=== PATIENT | male | born 1945 | race Caucasian/White ===

== ENCOUNTER → 2016-12-18 | Outpatient (CLI) | payer OTHER | LOC: GIMAGING 11:20 | PROVIDERS: ATTEND Family Medicine | DX: S62.232A Other displaced fracture of base of first metacarpal bone, left hand, initial encounter for closed fracture (principal); M19.042 Primary osteoarthritis, left hand | CPT/HCPCS: 73130-PO ==

== ENCOUNTER → 2016-12-28 | Outpatient (CLI) | payer OTHER | LOC: FIMAGING 13:20 | PROVIDERS: ATTEND Orthopaedic Surgery Hand Surgery | DX: S62.232D Other displaced fracture of base of first metacarpal bone, left hand, subsequent encounter for fracture with routine healing (principal); M19.042 Primary osteoarthritis, left hand ==

== ENCOUNTER 2017-07-17 19:53 | Emergency (ER) | payer OTHER ==
[2017-07-17 20:06] VITALS: RESP 16; TEMP 98.4
--- NOTE | 2017-07-17 20:20 | EDPHY ---
H & P Stated Complaint: ant chest pain intermittent over last month worse with exertion HPI/ROS: CHIEF COMPLAINT: Intermittent chest tightness HISTORY OF PRESENT ILLNESS: The patient is a 72 y/o male with a history of hypercholesterolemia and hypertension complaining of intermittent exertional chest tightness onset one month ago. A month ago, while playing hockey he noticed a mild tightness in his chest. The tightness dissipated with rest. He had a subsequent episode while on the rowing machine at the gym which again resolved with rest. Today he noticed the same tightness in his chest at the gym but it did not dissipate as usual and continues to be present. He rates the discomfort as a 1/10. He has a heart murmur but no known history of CAD. He had a negative stress test 5 years ago. He has not had a CT, angio, or MRI of the chest. He denies smoking, illicit drugs use, alcohol use, acid reflux, recent coughs, fever, or colds. He took 1 aspirin this afternoon. He recently completed radiation therapy for rising PSA in the setting of prostate cancer diagnosis and prostatectomy eight years ago. REVIEW OF SYSTEMS: A ten point review of systems was performed and is negative with the exception of the items mentioned in the HPI. Past medical history: 1. Hypercholesterolemia 2. Hypertension 3. 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 Vital signs reviewed. Blood pressure 159/65. Eyes: Pupils equal and round, no conjunctival injection, no discharge. Anicteric. ENT, Mouth: Mucous membranes are moist, no oropharyngeal erythema or edema. Neck: No lymphadenopathy, supple. No JVD. Respiratory: Lungs are clear to auscultation; no wheezes, rales, or rhonchi. Cardiovascular: Slightly bradycardic regular rate and rhythm, 3/6 murmur. No rub or gallop. Gastrointestinal: Abdomen is soft and nontender, no masses or organomegaly, bowel sounds normal. Skin: Warm and dry, no rashes on exposed skin, normal color. Back: Nontender to palpation over the thoracolumbar spine. No CVAT. Extremities: No lower extremity edema, no calf tenderness or swelling. Excoriation and small scabs to both ankles. Neurological: Alert and oriented. Moving all four extremities easily and equally. Psychiatric: Normal affect. - Personal History Current Tetanus/Diphtheria Vaccine: Unsure - Medical/Surgical History Hx Asthma: No Hx Chronic Respiratory Disease: No Hx Diabetes: No Hx Cardiac Disease: No Hx Renal Disease: No Hx Cirrhosis: No Hx Alcoholism: No Hx HIV/AIDS: No Hx Splenectomy or Spleen Trauma: No Other PMH: PMHx: high cholesterol. PSHx: bilat shoulders, prostate - Social History Smoking Status: Never smoked Constitutional: Initial Vital Signs Temperature (C) 36.9 C 07/17/17 20:02 Heart Rate 57 L 07/17/17 20:02 Respiratory Rate 16 07/17/17 20:02 Blood Pressure 159/65 H 07/17/17 20:02 O2 Sat (%) 94 07/17/17 20:02 O2 Delivery Mode Room Air Allergies/Adverse Reactions: No Known Allergies Allergy (Unverified 07/17/17 20:01) Medical Decision Making - Diagnostics EKG Interpretation: EKG interpreted by ED physician in [facility]. Imaging: I viewed and interpreted images myself ED Course/Re-evaluation: The patient is a 72 y/o male with a history of hypercholesterolemia, hypertension, and known heart murmur complaining of intermittent chest tightness onset one month ago. Until today the tightness was only on exertion. Today the tightness continued after leaving the gym. Chest X-ray, labs and EKG ordered. 224: I reviewed CXR. NAPD. No infiltrate, pneumothorax, mass. I do not suspect infection. The 12 lead EKG was interpreted by myself. See hard copy and/or "[facility]" electronic copy for interpretation. Sinus bradycardia at 56. Nonspecific T wave flattening anteriorly. Patient states that his chest discomfort is quite minor. CBC, chemistries, troponin all normal except for slight increase in blood sugar at 114. He has risk factors for CAD. His pain has been exertional, but today persisted after exercising. The description is suspicious for unstable angina. I am recommending hospitalization. However, he refuses hospitalization. We discussed my recommendation and he understand the risks of leaving, including PR and . He understands the benefits of remaining in the hospital. He is capable of making his own medical decisions. He has signed an AMA form. I strongly urged him to contact his PCP and schedule FU CRISTHIAN. He knows that he is welcome to return to the ED at anytime. His blood pressure was elevated in the ED, he is aware of this and agrees to have it checked by PCP. - Data Points Laboratory Results: Laboratory Results 07/17/17 20:30 07/17/17 20:30 Departure - Departure Disposition: Against Medical Advice Clinical Impression: Chest pain Qualifiers: Chest pain type: precordial pain Qualified Code(s): R07.2 - Precordial pain Condition: Fair Instructions: Angina (ED), Chest Pain (ED), Against Medical Advice (ED) Additional Instructions: 1. I recommend further evaluation with a supervisor pyrotechnic loading as soon as possible. You have been referred to Dr. Shepherd locally. 2. Return to the ED for any worsening of condition or if you wish to have further cardiac evaluation done here. By leaving against medical advise you have verbalized complete understanding and acceptance of the risks associated with doing so, including, but not limited to, , chronic & permanent disability and impairment, and other circumstances and consequences too numerous to mention here. Referrals: Kris Jackman MD [Primary Care Provider] - As per Instructions Nate Shepherd MD [Medical Doctor] - As per Instructions Report Scribed for: Jennifer Mcnamara Report Scribed by: Meg Herbert Date of Report: 07/17/17 Time of Report: 21:10 Physician Review and Approval Statement: 07/17/17 20:16 Portions of this note were transcribed by the director biomedical engineering. I, Dr. Jennifer Mcnamara, personally performed the history, physical exam, and medical decision- making; and confirmed the accuracy of the information in the transcribed note.
--- NOTE | 2017-07-17 20:22 | CPEKG ---
Heart Rate: 56 RR Interval: 1071 P-R Interval: 192 QRSD Interval: 84 QT Interval: 420 QTC Interval: 406 P [place]: 22 QRS [place]: 46 T Wave [place]: 132 EKG Severity - ABNORMAL ECG - EKG Impression: SINUS RHYTHM EKG Impression: NONSPECIFIC T ABNORMALITIES, LATERAL LEADS Electronically Signed By: Jennifer Mcnamara 18-Jul-2017 00:30:30
[2017-07-17 21:13] LABS: % IMMATURE GRANULYOCYTES 0.3 % (0.0-1.1); ABSOLUTE IMMATURE GRANULOCYTES 0.02 10^3/uL (0.00-0.10); ADD DIFF? NO; ADD MORPH? NO; ADD SCAN? NO; ATYPICAL LYMPHOCYTE FLAG 0 (0-99); FRAGMENT RBC FLAG 0 (0-99); HEMATOCRIT 47.4 % (40.0-51.0); HEMOGLOBIN 16.2 g/dL (13.7-17.5); LEFT SHIFT FLG 0 (0-99); LIPEMIA HEMOLYSIS FLAG 90 (0-99); MEAN CELL HEMOGLOBIN 29.6 pg (27.9-34.1); MEAN CELL HEMOGLOBIN CONCENTR. 34.2 g/dL (32.4-36.7); MEAN CELL VOLUME 86.5 fL (81.5-99.8); MEAN PLATELET VOLUME 9.9 fL (8.7-11.7); PLATELET CLUMPS FLAG 0 (0-99); PLATELET COUNT 231 10^3/uL (150-400); RED BLOOD CELL COUNT 5.48 10^6/uL (4.40-6.38); RED CELL DISTRIBUTION WIDTH 14.2 % (11.5-15.2)
[2017-07-17 21:25] LABS: ANION GAP 12 mEq/L (8-16); CALCIUM 9.7 mg/dL (8.5-10.4); CARBON DIOXIDE 24 mEq/l (22-31); CHLORIDE 104 mEq/L (97-110); CREATININE 0.9 mg/dL (0.7-1.3); GLOMERULAR FILTRATION RATE > 60; GLUCOSE 114 mg/dL (70-100); POTASSIUM 4.1 mEq/L (3.5-5.2); SODIUM 140 mEq/L (134-144)
[2017-07-17 21:37] LABS: TROPONIN I < 0.012 ng/mL (0.000-0.034)
[2017-07-17 23:31] VITALS: BP 142/88; PULSE 75; O2SAT 95
== END 2017-07-17 23:24 | disposition left against medical advice (07) ==
DX: R07.2 Precordial pain (principal); I10 Essential (primary) hypertension; Z85.46 Personal history of malignant neoplasm of prostate

== ENCOUNTER → 2017-09-11 | Outpatient (CLI) | payer OTHER | LOC: BHFA 08:30 | PROVIDERS: ATTEND Internal Medicine Interventional Cardiology | DX: R07.9 Chest pain, unspecified (principal) ==

== ENCOUNTER → 2017-09-13 | Outpatient (CLI) | payer OTHER | LOC: BHFA 08:30 | PROVIDERS: ATTEND Internal Medicine Cardiovascular Disease | DX: R07.9 Chest pain, unspecified (principal); R06.02 Shortness of breath; R01.1 Cardiac murmur, unspecified; E78.00 Pure hypercholesterolemia, unspecified | CPT/HCPCS: 78452; 93017; A9500 ==

== ENCOUNTER 2017-09-25 09:40 | Observation (INO) | payer OTHER ==
[2017-09-25] MEDS ORDERED: diphenhydrAMINE 25 MG CAP PO ONE ×2 (09:42→10:04)
[2017-09-25] MEDS ORDERED: NS 1,000 ML IV ONE (09:42)
[2017-09-25] MEDS ORDERED: ASPIRIN EC 325 MG TAB PO ONE ×2 (09:42→10:04)
[2017-09-25] MEDS ORDERED: DIAZEPAM 5 MG TAB PO ONE (09:42)
[2017-09-25] MEDS ORDERED: FAMOTIDINE 20 MG TAB PO ONE (09:42)
--- NOTE | 2017-09-25 10:00 | CPEKG ---
Heart Rate: 56 RR Interval: 1071 P-R Interval: 212 QRSD Interval: 90 QT Interval: 444 QTC Interval: 429 P [place]: 51 QRS [place]: 47 T Wave [place]: 97 EKG Severity - ABNORMAL ECG - EKG Impression: SINUS RHYTHM EKG Impression: NONSPECIFIC T ABNORMALITIES, LATERAL LEADS EKG Impression: ESSENTIALLY UNCHANGED FROM 17-JUL-2017 Electronically Signed By: Erica Gaitan 25-Sep-2017 11:11:17
[2017-09-25] MEDS ORDERED: FAMOTIDINE 20 MG TAB ONE (10:04)
[2017-09-25] MEDS ORDERED: DIAZEPAM 5 MG TAB ONE (10:05)
[2017-09-25 10:12] LABS: % IMMATURE GRANULYOCYTES 0.2 % (0.0-1.1); ABSOLUTE IMMATURE GRANULOCYTES 0.01 10^3/uL (0.00-0.10); ADD DIFF? NO; ADD MORPH? NO; ADD SCAN? NO; ATYPICAL LYMPHOCYTE FLAG 0 (0-99); FRAGMENT RBC FLAG 0 (0-99); HEMOGLOBIN 16.6 g/dL (13.7-17.5); LEFT SHIFT FLG 0 (0-99); LIPEMIA HEMOLYSIS FLAG 90 (0-99); MEAN CELL HEMOGLOBIN 29.3 pg (27.9-34.1); MEAN CELL HEMOGLOBIN CONCENTR. 33.9 g/dL (32.4-36.7); MEAN CELL VOLUME 86.6 fL (81.5-99.8); MEAN PLATELET VOLUME 9.2 fL (8.7-11.7); PLATELET CLUMPS FLAG 0 (0-99); PLATELET COUNT 241 10^3/uL (150-400); RED BLOOD CELL COUNT 5.66 10^6/uL (4.40-6.38); RED CELL DISTRIBUTION WIDTH 13.6 % (11.5-15.2)
[2017-09-25 10:21] LABS: INR 0.95 (0.83-1.16); PROTIME(PATIENT) 12.9 SEC (12.0-15.0)
[2017-09-25] MEDS ORDERED: LIDOCAINE 1% 300 MG/30 ML SDV ONE (10:24)
[2017-09-25] MEDS ORDERED: fentaNYL 100 MCG/2 ML INJ ONE (10:24)
[2017-09-25] MEDS ORDERED: IOPAMIDOL (ISOVUE-370) 150 ML BTL IV ONE ×2 (10:25→12:23)
[2017-09-25] MEDS ORDERED: VERAPAMIL 5 MG/2 ML VIAL ONE (10:25)
[2017-09-25] MEDS ORDERED: HEPARIN 10,000 UNIT/10 ML MDV ONE ×2 (10:25→12:09)
[2017-09-25] MEDS ORDERED: MIDAZOLAM 2 MG/2 ML VIAL ONE (10:25)
[2017-09-25 10:26] LABS: ANION GAP 14 mEq/L (8-16); CALCIUM 9.8 mg/dL (8.5-10.4); CARBON DIOXIDE 25 mEq/l (22-31); CHLORIDE 104 mEq/L (97-110); CHOLESTEROL 185 mg/dL (140-220); CHOLESTEROL/HDL RATIO 3.78 RATIO (1.00-4.97); GLOMERULAR FILTRATION RATE > 60; GLUCOSE 95 mg/dL (70-100); HIGH DENSITY LIPOPROTEIN 49 mg/dL (40-65); LDL/HDL RATIO 2.22 RATIO (1.00-3.64); LOW DENSITY LIPOPROTEIN 109 mg/dL (80-100); MAGNESIUM 2.1 mg/dL (1.6-2.3); NON-HIGH DENSITY LIPOPROTEIN 136 mg/dL (90-129); POTASSIUM 4.2 mEq/L (3.5-5.2); SODIUM 143 mEq/L (134-144); TRIGLYCERIDE 139 mg/dL (40-150); VERY LOW DENSITY LIPOPROTEINS 27 mg/dL (8-25)
--- NOTE | 2017-09-25 11:03 | PDHPUP ---
History & Physical Update H&P update statement: This history and physical update is based on an assessment of the patient which was completed after admission or registration (within 24 hours), but prior to the surgery/procedure. H&P update: H&P reviewed & patient examined, no change in patient's condition since H&P completed
--- NOTE | 2017-09-25 11:03 | PDPROPOC ---
Sedation Plan of Care Sedation Plan of Care: vital signs stable, mental status noted, patient educated of risks, benefits, alternatives, patient can tolerate sedation ASA Classification: ASA 1 Planned drugs: fentanyl, midazolam Mallampati Score: Class 1 Mallampati Reference Image: Patient passed 3-3-2 rule?: Yes
--- NOTE | 2017-09-25 11:53 | PDDXCAT ---
Diagnostic Cath Note - . 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 Appropriate bifurcation into the left anterior descending and circumflex vessels. Angiographically free of disease. LAD: Large caliber vessel. 2 diagonal branches identified. Luminal irregularities throughout with a 40% eccentric mid lesion. LCX: Small vessel that becomes diminutive proximally. There are 2 obtuse marginal branches. The 2nd obtuse marginal branch is large and bifurcates. There is a 90% lesion in the midportion. RCA: Large caliber and dominant. The PDA and posterolateral branch are identified. The proximal segment is eccentric with a 30% lesion. The remainder of the vessel contains luminal irregularities. LVEF: Greater than 70%. No wall motion abnormalities. - Findings-Right Heart Catheterization AO: Aortic pressure 143/9/17 mmHg. LV pressure 113/62/85 mmHg. 30 mm Hg peak to peak transaortic pressure gradient. Complications: None. Estimated blood loss: <50ml Closure method: TR Band Assessment: 1. High-grade single-vessel CAD as described above involving the 2nd obtuse marginal branch. 2. [employer] 2/3 angina. 3. Abnormal stress myocardial perfusion imaging study suggesting lateral ischemia. Plan: The patient will be referred to Dr. Ishaan Victor for PCI of the obtuse marginal lesion. Intervention: There is a separately dictated report. Patient Problems: Problems Problem Status Onset Chest pain Acute
[2017-09-25] MEDS ORDERED: CLOPIDOGREL BISULFATE 75 MG TAB ONE ×2 (12:59→13:01)
[2017-09-25] MEDS ORDERED: HYDROCODONE/APAP 5/325 TAB PO PRN (13:25)
[2017-09-25] MEDS ORDERED: TEMAZEPAM 15 MG CAP PO PRN (13:25)
[2017-09-25] MEDS ORDERED: CLOPIDOGREL BISULFATE 75 MG TAB PO ONE (13:25)
[2017-09-25] MEDS ORDERED: ATROPINE SULFATE 1 MG/10 ML SYR IVP PRN (13:25)
[2017-09-25] MEDS ORDERED: NITROGLYCERIN 0.4 MG BTL SL PRN (13:25)
[2017-09-25] MEDS ORDERED: ONDANSETRON 4 MG/2 ML VIAL IVP PRN (13:25)
[2017-09-25] MEDS ORDERED: ACETAMINOPHEN 325 MG TAB PO PRN (13:25)
[2017-09-25] MEDS ORDERED: NS 1,000 ML IV SCH (13:30)
--- NOTE | 2017-09-25 13:50 | PDDXCAT ---
Diagnostic Cath Note - . 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 Intervention: Please refer to the diagnostic cardiac catheter report by Dr. winter. Briefly , the patient is a 72-year-old male with CCS class II angina he had a nuclear stress test. Diagnostic catheterization demonstrated moderate but noncritical disease involving the LAD and RCA. The proximal circumflex had diffuse mild to moderate disease. There was a focal 90% lesion in the second obtuse marginal branch. Based on the patient's clinical history and diagnostic angiograms, the decision was made to perform PCI of the second obtuse marginal. The diagnostic study had been performed from the left radial approach. There was severe tortuosity in the proximal portion of the circumflex. Therefore, I elected to switch to a right femoral approach. A 6 [place] sheath was placed in the right femoral artery. The patient received 4000 units of intravenous heparin in addition to the 4000 units had been given at the beginning of the procedure. Attempts to pass a 6 [place] ClLS 3.5 guide catheter were thwarted by severe iliofemoral tortuosity. A Magic-Torque guidewire was used through a 6 Argentine JR 4 diagnostic catheter to navigate the guidewire into the ascending aorta. The 6 [place] femoral arterial sheath was exchanged for a 6 [place] 45 cm braided sheath. The CLS-3.5 guide catheter was advanced to the left main. An Intuition guidewire was negotiated into the distal portion of the second obtuse marginal branch. Predilatation of the target lesion was performed using a 2.5 x 12 mm Emerge balloon. Attempts to advance a 2.75 x 16 mm Synergy stent were hampered by the tortuosity in the proximal circumflex. The stent could not even be advanced beyond the first 110 turn. Therefore, additional inflations at the target lesion were performed using a 2.75 x 12 mm Emerge balloon. At this point , angiography demonstrated a less than 20% residual stenosis with DWIGHT-III flow and no evidence of dissection. I elected to stop with a good angioplasty result. Patient Problems: Problems Problem Status Onset Chest pain Acute
--- NOTE | 2017-09-25 15:03 | CPEKG ---
Heart Rate: 45 RR Interval: 1333 P-R Interval: 240 QRSD Interval: 92 QT Interval: 496 QTC Interval: 430 P [place]: -9 QRS [place]: 31 T Wave [place]: 206 EKG Severity - ABNORMAL ECG - EKG Impression: SINUS BRADYCARDIA EKG Impression: FIRST DEGREE AV BLOCK EKG Impression: NONSPECIFIC T ABNORMALITIES, DIFFUSE LEADS Electronically Signed By: Erica Gaitan 26-Sep-2017 06:46:43
[2017-09-26 05:05] VITALS: RESP 14
[2017-09-26 05:14] LABS: % IMMATURE GRANULYOCYTES 0.3 % (0.0-1.1); ABSOLUTE IMMATURE GRANULOCYTES 0.03 10^3/uL (0.00-0.10); ADD DIFF? NO; ADD MORPH? NO; ADD SCAN? NO; ATYPICAL LYMPHOCYTE FLAG 0 (0-99); FRAGMENT RBC FLAG 0 (0-99); HEMATOCRIT 44.2 % (40.0-51.0); HEMOGLOBIN 14.4 g/dL (13.7-17.5); LEFT SHIFT FLG 0 (0-99); LIPEMIA HEMOLYSIS FLAG 80 (0-99); MEAN CELL HEMOGLOBIN 28.9 pg (27.9-34.1); MEAN CELL HEMOGLOBIN CONCENTR. 32.6 g/dL (32.4-36.7); MEAN CELL VOLUME 88.8 fL (81.5-99.8); MEAN PLATELET VOLUME 10.1 fL (8.7-11.7); PLATELET CLUMPS FLAG 10 (0-99); PLATELET COUNT 244 10^3/uL (150-400); RED BLOOD CELL COUNT 4.98 10^6/uL (4.40-6.38); RED CELL DISTRIBUTION WIDTH 13.9 % (11.5-15.2)
[2017-09-26 06:18] LABS: ALBUMIN 3.4 g/dL (3.5-5.0); ANION GAP 11 mEq/L (8-16); ASPARTATE AMINOTRANSFERASE 34 IU/L (17-59); BILIRUBIN,TOTAL 0.2 mg/dL (0.1-1.4); CALCIUM 9.4 mg/dL (8.5-10.4); CARBON DIOXIDE 21 mEq/l (22-31); CHLORIDE 108 mEq/L (97-110); GLOMERULAR FILTRATION RATE > 60; GLUCOSE 94 mg/dL (70-100); LACTATE DEHYDROGENASE 367 IU/L (313-618); MAGNESIUM 2.1 mg/dL (1.6-2.3); POTASSIUM 4.5 mEq/L (3.5-5.2); SODIUM 140 mEq/L (134-144)
[2017-09-26 07:30] VITALS: BP 108/66; PULSE 58; TEMP 98.1; O2SAT 96
--- NOTE | 2017-09-26 08:50 | CPEKG ---
Heart Rate: 61 RR Interval: 984 P-R Interval: 196 QRSD Interval: 92 QT Interval: 432 QTC Interval: 435 P [place]: 44 QRS [place]: 61 T Wave [place]: 157 EKG Severity - ABNORMAL ECG - EKG Impression: SINUS RHYTHM EKG Impression: PROBABLE LVH WITH SECONDARY REPOL ABNRM Electronically Signed By: Erica Gaitan 26-Sep-2017 10:38:20
[2017-09-26] MEDS ORDERED: CLOPIDOGREL BISULFATE 75 MG TAB PO SCH (09:00)
[2017-09-26] MEDS ORDERED: ASPIRIN EC 325 MG TAB PO SCH (09:00)
--- NOTE | 2017-09-26 14:53 | GDS ---
[f rep st] DISCHARGE SUMMARY REASON FOR ADMISSION: Coronary artery disease. HOSPITAL COURSE: Please refer to Dr. Shepherd's recent office note, which serves as the admission histo ry and physical for this hospital encounter. Also please refer to his diagnostic cardiac cath report and my interventional cardiac cath report. Briefly, the patient is a 72-year-old male who presented several weeks ago with new-onset exertional angina. A nuclear stress test demonstrated inferolatera l ischemia. On that basis, he was scheduled for cardiac catheterization. That procedure demonstrate d normal left ventricular systolic function and mild to moderate coronary irregularities involving th e left anterior descending and right coronary artery. The circumflex had a focal stenosis of at leas t 80% in the 2nd obtuse marginal branch. I was asked to perform percutaneous coronary intervention. The patient's diagnostic procedure had been performed via the left radial approach. I opted to swit ch to the right femoral approach because of severe tortuosity in the proximal to midportion of the ci rcumflex. A guidewire was successfully negotiated into the distal portion of the 2nd obtuse marginal branch, and angioplasty inflations were performed using the 2.5 x 12 mm balloon and the 2.75 x 12 mm balloon. However, a stent could not be tracked into position due to the severe tortuosity. He had an acceptable angioplasty result. Overnight, the patient has had no issues with either his left radial or right femoral puncture sites. He is stable and ready for discharge. I had a lengthy discussion with the patient and his reg arding the findings of yesterday's procedure and the plan for aggressive secondary prevention moving forward. His lipid panel demonstrated a total cholesterol of 174 with HDL 41, LDL 96, and triglyceri stephanie 188. He has been on simvastatin 40 mg daily. I suggested that we switch him to atorvastatin 40 mg daily in an effort to achieve an LDL less than 70. I also placed him on clopidogrel. I would lik e for him to be on dual antiplatelet therapy for 3 months. He has followup on October 10 with Tiff chris Tapia in the [place] office [facility]. DISCHARGE DIAGNOSES: 1. Coronary artery disease. 2. Successful percutaneous transluminal coronary angioplasty of the 2nd obtuse marginal branch. /[id number]/MODL
[2017-09-26] MEDS ORDERED: NON-FORMULARY NEW DRUG (Simvastatin [Zocor] 40 MG) PO SCH (18:00)
[2017-09-27] MEDS ORDERED: ATORVASTATIN CALCIUM 40 MG TAB PO SCH (09:00)
--- NOTE | 2017-09-27 15:50 | ASDISCHSUM ---
Discharge Information Plan Status:Home with No Needs Medically Cleared to Leave: Discharge Date:09/26/2017 11:00 AM D/C Disposition:Home Health Service [facility] D/C Disposition:Home, Routine, Self-Care Projected Discharge Date:09/26/2017 11:00 AM Transportation at D/C:Family Discharge Delay Reason: Follow-Up Date:09/26/2017 11:00 AM Discharge Slot: Final Diagnosis: Placement Information Patient Contact Information Contact Name:KENNEDY Relationship: Address:[address] City:[place] Alternate Phone: State/Zip Code:[place] [address] Email: Financial Information Financial Class: Primary Plan Desc:MEDICARE OUTPATIENT Primary Plan Number:[id number] Secondary Plan Desc:JACKIE PHAMTY Secondary Plan Number:[id number] Assessment Information Intervention Information
[2017-09-30 17:09] LABS: 2C19 DISCLAIMER See Comments; 2C19 INTERPRETATION See Comments; 2C19 METHOD See Comments
== END 2017-09-26 11:00 | disposition home or self-care (01) ==
LOC: FCATH 09:40 → F2W 11:43
PROVIDERS: ADMIT Internal Medicine Cardiovascular Disease; ATTEND Internal Medicine Interventional Cardiology
PROC: 02703ZZ Dilation of Coronary Artery, One Artery, Percutaneous Approach (ICD-10-PCS; principal; 2017-09-25)
PROC: 4A023N7 Measurement of Cardiac Sampling and Pressure, Left Heart, Percutaneous Approach (ICD-10-PCS; 2017-09-25)
PROC: B2111ZZ Fluoroscopy of Multiple Coronary Arteries using Low Osmolar Contrast (ICD-10-PCS; 2017-09-25)
PROC: B2151ZZ Fluoroscopy of Left Heart using Low Osmolar Contrast (ICD-10-PCS; 2017-09-25)
DX: I25.119 Atherosclerotic heart disease of native coronary artery with unspecified angina pectoris (principal); R94.39 Abnormal result of other cardiovascular function study; E78.00 Pure hypercholesterolemia, unspecified; I10 Essential (primary) hypertension; Z79.82 Long term (current) use of aspirin; Z79.899 Other long term (current) drug therapy; Z85.49 Personal history of malignant neoplasm of other male genital organs; Z86.010 Personal history of colon polyps
CPT/HCPCS: 92920; 93005; 93458; C1725; C1769; C1887; J1644; J2250; J3010; Q9967; 81225-90; J0461